=== PATIENT | male | born 1990 | race African-American/Black ===

== ENCOUNTER 2018-05-09 09:03 | Emergency (ER) | payer MEDICAID ==
[~2018-05-09] VITALS: Ht 177.8 cm; Wt 73.0 kg
[2018-05-09] MEDS ORDERED: IBUPROFEN 600MG TABLET PO ONE (11:00)
[2018-05-09 12:01] VITALS: BP 122/67
== END 2018-05-09 12:06 | disposition home or self-care (01) ==
LOC: ER 09:03
DX: R05 Cough (principal); B34.9 Viral infection, unspecified; R51 Headache
CPT/HCPCS: 71045; 87804; 99284